=== PATIENT | female | born 1970 | race Caucasian/White ===

== ENCOUNTER 2018-03-19 16:17 | Emergency (ER) | payer OTHER ==
[2018-03-19 17:09] VITALS: BP 118/71; PULSE 77; RESP 16; TEMP 98.6
--- NOTE | 2018-03-19 18:11 | XR ---
EXAMINATION TYPE: XR elbow complete RT DATE OF EXAM: 03/19/2018 COMPARISON: NONE HISTORY: 47-year-old female with pain and redness posterior elbow TECHNIQUE: 3 views FINDINGS: There is soft tissue swelling overlying the olecranon process. No elbow joint effusion. No acute frac ture, subluxation, or dislocation. IMPRESSION: Soft tissue swelling overlying the olecranon process could represent cellulitis, soft tissue contusio n, or olecranon bursitis. No acute osseous abnormality seen.
--- NOTE | 2018-03-19 18:51 | ED ---
General Adult HPI - General Chief complaint: Extremity Problem,Nontraumatic Stated complaint: rt elbow swelling Time Seen by Provider: 03/19/18 18:34 Source: patient, RN notes reviewed Mode of arrival: ambulatory Limitations: no limitations - History of Present Illness Initial comments: 47-year-old female presents to the emergency department for a chief complaint of right elbow swelling. Patient states this has been going on for the past couple days. Patient denies any injury to the elbow. Patient denies any pain with movement of the elbow. Patient denies any fevers or chills at home. Patient states it is warm to touch. Patient has no other complaints at this time including shortness of breath, chest pain, abdominal pain, nausea or vomiting, headache, or visual changes. - Related Data Previous Rx's Medication Instructions Recorded Acetaminophen-Codeine 300-30mg 1 tab PO Q6H PRN #20 tablet 01/09/15 [Tylenol #3] Cyclobenzaprine [Flexeril] 10 mg PO TID PRN #15 tab 01/09/15 methylPREDNISolone [Medrol] 1 pack PO DIRECTED #1 tab.ds.pk 01/09/15 Cephalexin [Keflex] 500 mg PO Q6HR 10 Days cap 03/19/18 Allergies Allergy/AdvReac Type Severity Reaction Status Date / Time cranberry Allergy Rash/Hives Verified 03/19/18 17:09 Review of Systems ROS Statement: Those systems with pertinent positive or pertinent negative responses have been documented in the HPI. ROS Other: All systems not noted in ROS Statement are negative. Past Medical History Past Medical History: COPD, Fibromyalgia, Sleep Apnea/CPAP/BIPAP History of Any Multi-Drug Resistant Organisms: MRSA Date of last positivie culture/infection: 2014 MDRO Source:: Right leg Additional Past Surgical History / Comment(s): Additional Surgical Hx: Oophorectomy - left. Addtional Medical Hx: Diverticulosis Past Psychological History: No Psychological Hx Reported Smoking Status: Current every day smoker Past Alcohol Use History: None Reported Past Drug Use History: Marijuana General Exam Limitations: no limitations General appearance: alert, in no apparent distress Head exam: Present: atraumatic, normocephalic, normal inspection Eye exam: Present: normal appearance ENT exam: Present: normal exam, normal oropharynx, mucous membranes moist, TM's normal bilaterally Neck exam: Present: normal inspection, full ROM. Absent: tenderness, meningismus, lymphadenopathy Respiratory exam: Present: normal lung sounds bilaterally. Absent: respiratory distress, wheezes, rales, rhonchi, stridor Cardiovascular Exam: Present: regular rate, normal rhythm, normal heart sounds. Absent: systolic murmur, diastolic murmur, rubs, gallop, clicks Extremities exam: Present: full ROM (Full range of motion of the right elbow in the rest of the right upper extremity), tenderness (. Mild tenderness to the redness of the right elbow. No tenderness to the medial or lateral epicondyles. ), normal capillary refill (Refill less than 2 seconds and radial pulse 2+ in the right upper extremity.), joint swelling (There is minimal erythema and swelling of the right elbow.), other (There is a 3 cm x 3 cm area of erythema on the olecranon of the right elbow. Appears cellulitic in nature. No abscess noted. No openings in the skin. It is not indurated at this time.) Course Vital Signs 03/19/18 17:07 Temperature 98.6 F Pulse Rate 77 Respiratory 16 Rate Blood Pressure 118/71 O2 Sat by Pulse 96 Oximetry Medical Decision Making - Medical Decision Making 47-year-old female presents to the emergency department for a chief complaint of redness to the right elbow times the past few days. No fevers or chills. No injuries. Patient has full range of motion of the right elbow on exam. There is a 3 cm x 3 cm area of redness to the olecranon of the right elbow. It feels warm to touch. It is cellulitic in nature. No drainable abscess noted. No tenderness to the medial or lateral epicondyles. There is some tenderness to the redness but it is minimal. Neurovascular intact. No signs of joint infection. No pain with movement of the elbow joint. Patient will be treated for cellulitis with Keflex. Patient was marked with black ink to monitor for spreading redness. She will return if she has worsening symptoms. She will follow up with primary care in 1-2 days. Disposition Clinical Impression: Cellulitis Disposition: HOME SELF-CARE Condition: Good Instructions: Cellulitis (ED) Additional Instructions: Please take Keflex as directed. Take Motrin or Tylenol for pain. Trace redness with a black marker and monitor for spreading redness. If symptoms worsen return to the emergency department. Otherwise follow-up with primary care in 1-2 days. Prescriptions: Cephalexin [Keflex] 500 mg PO Q6HR 10 Days cap Is patient prescribed a controlled substance at d/c from ED?: No Referrals: Calvin Franco MD [Primary Care Provider] - 1-2 days Time of Disposition: 18:51
== END 2018-03-19 19:09 | disposition home or self-care (01) ==
LOC: EC 16:17
DX: L03.113 Cellulitis of right upper limb (principal); G47.30 Sleep apnea, unspecified; F17.200 Nicotine dependence, unspecified, uncomplicated; Z99.89 Dependence on other enabling machines and devices; Z86.14 Personal history of Methicillin resistant Staphylococcus aureus infection; Z91.018 Allergy to other foods
CPT/HCPCS: 99283

== ENCOUNTER → 2018-12-22 | Outpatient (CLI) | payer OTHER ==
--- NOTE | 2018-12-22 11:08 | CT ---
EXAMINATION TYPE: CT ChestAbdPelvis w con DATE OF EXAM: 12/22/2018 COMPARISON: None HISTORY: 47-year-old female intra-abdominal mass and pelvic swelling TECHNIQUE: Contiguous axial scanning of the chest, abdomen, and pelvis performed with IV Contrast, pa tient injected with 100 mL of Isovue 300. Delayed images through the kidneys were obtained. Coronal/s agittal reconstructions performed. CT DLP: 1723.0 mGycm Automated exposure control for dose reduction was used. FINDINGS: Chest: Heart normal size without pericardial effusion. Aorta normal caliber with conventional vessel branching anatomy. No thoracic lymphadenopathy by CT size criteria. No consolidation or pleural effusion. ABDOMEN: Tiny hiatal hernia. Subcentimeter hypodensity central posterior right liver lobe, axial image 62, too small for accurate CT characterization, possible tiny cyst. Otherwise, no focal liver lesion. No biliary ductal dilatati on. Portal venous system is patent. Gallbladder, right adrenal gland, kidneys, spleen, and pancreas appear within normal limits Subtle 1 cm nodularity left adrenal gland could represent a subtle underlying adrenal adenoma. No dilated small bowel, free fluid, or free air. No mesenteric or retroperitoneal lymphadenopathy. Normal appendix. No significant stool burden. Mild diverticular change along the left side of the col on. Oral contrast extends distally to the rectum. No pericolonic inflammatory change. Bones: Uterus anteverted. 2.7 cm rounded low-density structure within the right ovary. There is a large left adnexal mass with mixed internal soft tissue/fluid, infection density measuring up to 12.3 x 12.1 cm . Some internal calcifications are present along the posterior-inferior margin. No abnormal fluid collection otherwise seen in the pelvis and no pelvic adenopathy. Bones: Reversal of the normal lumbar lordosis in the upper lumbar spine. No osseous destructive process. IMPRESSION: 1. 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 POTENTIAL COMPLICATIONS OF TH IS TYPE OF LESION INCLUDE OVARIAN TORSION AND DERMOID CYST RUPTURE. 2. A SMALLER 2.7 CM CYST VERSUS ADDITIONAL DERMOID OF THE RIGHT OVARY. CONSIDER CONTRAST-ENHANCED FEM VIOLETA PELVIC MRI FOR FURTHER CHARACTERIZATION. 3. A 1 CM NODULE IN THE LEFT ADRENAL GLAND STATISTICALLY REPRESENTS A BENIGN APPEARING LIPOMA. A ONE- YEAR FOLLOW-UP COULD BE CONSIDERED. 4. MILD LEFT HEMICOLONIC DIVERTICULOSIS.
== END | disposition home or self-care (01) ==
LOC: RADCTMAIN 08:32
PROVIDERS: ATTEND Obstetrics & Gynecology
DX: D27.1 Benign neoplasm of left ovary (principal); K57.30 Diverticulosis of large intestine without perforation or abscess without bleeding; E27.8 Other specified disorders of adrenal gland
CPT/HCPCS: 71260; 74177

== ENCOUNTER → 2019-02-01 | Outpatient (CLI) | payer OTHER ==
[2019-02-01 11:25] LABS: Anisocytosis Moderate; HCT 31.4 % (34.0-46.0); HGB 8.7 gm/dL (11.4-16.0); Hypochromasia Marked; MCH 20.1 pg (25.0-35.0); MCHC 27.7 g/dL (31.0-37.0); MCV 72.5 fL (80.0-100.0); Mean Platelet Volume 7.2; Microcytosis Marked; Platelet Count 295 k/uL (150-450); Poikilocytosis Slight; RBC 4.33 m/uL (3.80-5.40); RDW 20.7 % (11.5-15.5); WBC 8.3 k/uL (3.8-10.6)
[2019-02-01 11:27] LABS: INR 0.9 (<1.2); Partial Thromboplastin Time 25.4 sec (22.0-30.0)
[2019-02-01 11:29] LABS: Amorphous Sediment,Urine Rare /hpf; Appearance,Urine Cloudy (Clear); Bacteria,Urine Rare /hpf; Bilirubin,Urine Negative (Negative); Blood,Urine Moderate (Negative); Color,Urine Yellow; Glucose,Urine (UA) Negative (Negative); Ketones,Urine Negative (Negative); Leukocyte Esterase,Urine Small (Negative); Mucus,Urine Many /hpf; Nitrite,Urine Negative (Negative); Protein,Urine Trace (Negative); Specific Gravity,Urine 1.021 (1.001-1.035); Squamous Epithelial Cell,Urine 37 /hpf (0-4); WBC,Urine 9 /hpf (0-5)
[2019-02-01 15:56] LABS: ALT 16 U/L (8-44); AST 27 U/L (13-35); Albumin/Globulin Ratio 1.81 (1.60-3.17); Alkaline Phosphatase 78 U/L (41-126); Blood Urea Nitrogen <5.0 mg/dL (9.0-27.0); Calcium 8.8 mg/dL (8.7-10.3); Carbon Dioxide 28.4 mmol/L (21.6-31.8); Chloride 105 mmol/L (96-109); Globulin 2.1 g/dL (1.6-3.3); Glucose 114 mg/dL (70-110); Potassium 3.3 mmol/L (3.5-5.5); Sodium 140 mmol/L (135-145); Total Bilirubin 0.2 mg/dL (0.3-1.2); Total Protein 5.9 g/dL (6.2-8.2)
[2019-02-02 13:05] LABS: Iron Saturation 3.89 (12.00-45.00)
== END | disposition home or self-care (01) ==
LOC: LABWHC1 10:35
PROVIDERS: ATTEND Internal Medicine
DX: Z01.818 Encounter for other preprocedural examination (principal); Z01.812 Encounter for preprocedural laboratory examination
CPT/HCPCS: 36415; 80053; 81001; 83540; 83550; 85027; 85610; 85730; 93005

== ENCOUNTER 2019-05-21 16:27 | Emergency (ER) | payer OTHER ==
[2019-05-21 16:39] VITALS: RESP 16; TEMP 98.1
[2019-05-21] MEDS ORDERED: diphenhydrAMINE 50 MG/ML 1 ML VIAL IVP STA (17:08)
[2019-05-21] MEDS ORDERED: METOCLOPRAMIDE 5 MG/ML 2 ML VIAL IVP STA (17:08)
[2019-05-21] MEDS ORDERED: SODIUM CHLORIDE 0.9% 1,000 ML IV STA (17:08)
[2019-05-21] MEDS ORDERED: DEXAMETHASONE SOD PHOSPHATE 10 MG/ML 1 ML VIAL IV STA (17:10)
[2019-05-21] MEDS ORDERED: MAGNESIUM SULFATE-D5W PMX 1 GM in DEXTROSE/WATER 1 100ML.BAG IVPB ONE (17:10)
--- NOTE | 2019-05-21 17:14 | ED ---
Headache HPI - General Chief Complaint: Headache Stated Complaint: Headache Time Seen by Provider: 05/21/19 16:40 Mode of arrival: ambulatory Limitations: no limitations - History of Present Illness Initial Comments: The patient is a 40-year-old female who presents the emergency department with reported headache for the past 2 weeks. Patient states this is a global headache sensation with pressure in her frontal sinuses. She denies any symptoms of respiratory infection. Denies any nasal drainage, sore throat or cough. She does report to ear pressure. Denies any fevers or chills. No neck pain or stiffness. She does report to a slight left-sided lip droop which she b elieves is secondary to an area of infection adjacent to her left superior lip. 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 States the lesion has been present for approximately 2 weeks. He has been growing in size. It is currently scabbed over. She has been getting some clear drainage from it. She does have a history of MRSA. She denies any issues with confusion or slurred speech. No weakness in her extremities. No difficulties with ambulation. Denies any photophobia. No chest pain or shortness of breath. No head trauma. There are no other alleviating, precipitating or modifying factors - Related Data Home Medications Medication Instructions Recorded Confirmed Ibuprofen [Motrin Ib] 400 mg PO ONCE PRN 05/21/19 05/21/19 Loratadine [Claritin] 10 mg PO DAILY PRN 05/21/19 05/21/19 Previous Rx's Medication Instructions Recorded Sulfamethox-Tmp 800-160Mg [Bactrim 2 tab PO Q12HR 7 Days #28 tab 05/21/19 Ds] valACYclovir HCL [Valacyclovir] 1,000 mg PO Q12HR #14 tab 05/21/19 Allergies Allergy/AdvReac Type Severity Reaction Status Date / Time cranberry Allergy Rash/Hives Verified 05/21/19 16:50 Review of Systems ROS Statement: Those systems with pertinent positive or pertinent negative responses have been documented in the HPI. ROS Other: All systems not noted in ROS Statement are negative. Past Medical History Past Medical History: COPD, Fibromyalgia, Sleep Apnea/CPAP/BIPAP History of Any Multi-Drug Resistant Organisms: MRSA Date of last positivie culture/infection: 2014 MDRO Source:: Right leg Additional Past Surgical History / Comment(s): Additional Surgical Hx: Oophorectomy - left. Addtional Medical Hx: Diverticulosis Past Psychological History: No Psychological Hx Reported Smoking Status: Current every day smoker Past Alcohol Use History: None Reported Past Drug Use History: Marijuana General Exam Limitations: no limitations General appearance: alert, in no apparent distress Head exam: Present: atraumatic, normocephalic, normal inspection Eye exam: Present: normal appearance, PERRL, EOMI. Absent: scleral icterus, conjunctival injection, periorbital swelling ENT exam: Present: normal oropharynx, mucous membranes moist, TM's normal bilaterally, normal external ear exam, other (there is a large ulcerative lesion near the left upper lip. there is a central area of scabbing measuring 1.0 x 1.0 cm. No drainage. There is a large area of induration surrounding the scab. ) Neck exam: Present: normal inspection. Absent: tenderness, meningismus, lymphadenopathy Respiratory exam: Present: normal lung sounds bilaterally. Absent: respiratory distress, wheezes, rales, rhonchi, stridor Cardiovascular Exam: Present: regular rate, normal rhythm, normal heart sounds. Absent: systolic murmur, diastolic murmur, rubs, gallop, clicks GI/Abdominal exam: Present: soft, normal bowel sounds. Absent: distended, tenderness, guarding, rebound, rigid Extremities exam: Present: normal inspection, full ROM, normal capillary refill. Absent: tenderness, pedal edema, joint swelling, calf tenderness Back exam: Present: normal inspection Neurological exam: Present: alert, oriented X3, CN II-XII intact, reflexes normal, other (finger to nose, heel to hampton is symmetric bilaterally. Equal 5/5 strength in all extremities. No visual field decifits. No slurred speech or confusion. ) Psychiatric exam: Present: normal affect, normal mood Skin exam: Present: warm, dry, intact, normal color. Absent: rash Course Vital Signs 05/21/19 05/21/19 16:38 18:53 Temperature 98.1 F Pulse Rate 69 75 Respiratory 16 16 Rate Blood Pressure 134/74 140/75 O2 Sat by Pulse 97 99 Oximetry Medical Decision Making - Medical Decision Making Upon arrival the patient is placed in room 16. She is hooked up to continuous pulse ox and cardiac monitoring. Peripheral IV is established. The patient is given a migraine cocktail which consisted of Decadron 10 mg IV, Benadryl 25 mg IV, Reglan 10 mg IV, and magnesium 1 g IV. Laboratory studies were conducted. The patient was sent for CT of her brain as well as CT angiography. Upon return of the results I did discuss them with the patient. I discussed the diagnosis, differential and treatment options. The patient reports to to improvement in her pain from 9 out of 10-6 out of 10. I did recommend treatment with Toradol and patient did agree. She was given 15 mg IV. I recommended that the patient be treated for the lesion on her left lip. She does have a history of MRSA I will was concerned for repeat infection. I did recommend treatment with Bactrim for which the patient did agree. I do believe the patient's lesion did stem from herpes and therefore I also recommended valacyclovir. The patient did agree to this. I did prescribe the patient these medications. She is reevaluated prior to discharge and states that her headache is greatly improved. She is to follow-up with her primary care physician within 2-4 days. If she has any new or worsening symptoms she should return to the emergency room. The patient was discharged home in stable condition. - Lab Data Result diagrams: 05/21/19 17:34 05/21/19 17:34 Lab Results 05/21/19 05/21/19 Range/Units 17:34 17:34 WBC 10.3 (3.8-10.6) k/uL RBC 5.14 (3.80-5.40) m/uL Hgb 13.5 (11.4-16.0) gm/dL Hct 43.2 (34.0-46.0) % MCV 84.1 (80.0-100.0) fL MCH 26.3 (25.0-35.0) pg MCHC 31.3 (31.0-37.0) g/dL RDW 19.7 H (11.5-15.5) % Plt Count 226 (150-450) k/uL Neutrophils % 78 % Lymphocytes % 15 % Monocytes % 4 % Eosinophils % 2 % Basophils % 0 % Neutrophils # 8.0 H (1.3-7.7) k/uL Lymphocytes # 1.5 (1.0-4.8) k/uL Monocytes # 0.5 (0-1.0) k/uL Eosinophils # 0.2 (0-0.7) k/uL Basophils # 0.0 (0-0.2) k/uL Anisocytosis Slight Microcytosis Slight Sodium 138 (137-145) mmol/L Potassium 3.6 (3.5-5.1) mmol/L Chloride 101 (98-107) mmol/L Carbon Dioxide 30 (22-30) mmol/L Anion Gap 7 mmol/L BUN 4 L (7-17) mg/dL Creatinine 0.53 (0.52-1.04) mg/dL Est GFR (CKD-EPI)AfAm >90 (>60 ml/min/1.73 sqM) Est GFR (CKD-EPI)NonAf >90 (>60 ml/min/1.73 sqM) Glucose 105 H (74-99) mg/dL Calcium 9.8 (8.4-10.2) mg/dL Total Bilirubin 0.4 (0.2-1.3) mg/dL AST 26 (14-36) U/L ALT 27 (9-52) U/L Alkaline Phosphatase 87 (38-126) U/L Total Protein 7.7 (6.3-8.2) g/dL Albumin 4.4 (3.5-5.0) g/dL TSH 1.460 (0.465-4.680) mIU/L Disposition Clinical Impression: Headache, Facial cellulitis Disposition: HOME SELF-CARE Condition: Stable Instructions (If sedation given, give patient instructions): Acute Headache (ED) Additional Instructions: Please follow-up with your primary care doctor in 2-4 days. Return to the emergency room for any new or worsening symptoms Prescriptions: Sulfamethox-Tmp 800-160Mg [Bactrim Ds] 2 tab PO Q12HR 7 Days #28 tab valACYclovir HCL [Valacyclovir] 1,000 mg PO Q12HR #14 tab Is patient prescribed a controlled substance at d/c from ED?: No Referrals: Calvin Franco MD [Primary Care Provider] - 1-2 days Time of Disposition: 18:50
[2019-05-21 17:44] LABS: Anisocytosis Slight; Basophils % (A) 0 %; Eosinophils # (A) 0.2 k/uL (0-0.7); Eosinophils % (A) 2 %; HCT 43.2 % (34.0-46.0); HGB 13.5 gm/dL (11.4-16.0); Lymphocytes # (A) 1.5 k/uL (1.0-4.8); Lymphocytes % (A) 15 %; MCH 26.3 pg (25.0-35.0); MCHC 31.3 g/dL (31.0-37.0); MCV 84.1 fL (80.0-100.0); Microcytosis Slight; Monocytes # (A) 0.5 k/uL (0-1.0); Monocytes % (A) 4 %; Neutrophils % (A) 78 %; Platelet Count 226 k/uL (150-450); RBC 5.14 m/uL (3.80-5.40); RDW 19.7 % (11.5-15.5); WBC 10.3 k/uL (3.8-10.6)
[2019-05-21 17:58] LABS: ALT 27 U/L (9-52); AST 26 U/L (14-36); African American GFR (CKD) >90 (>60 ml/min/1.73 sqM); Albumin 4.4 g/dL (3.5-5.0); Alkaline Phosphatase 87 U/L (38-126); Anion Gap 7 mmol/L; Blood Urea Nitrogen 4 mg/dL (7-17); Calcium 9.8 mg/dL (8.4-10.2); Carbon Dioxide 30 mmol/L (22-30); Chloride 101 mmol/L (98-107); Glucose 105 mg/dL (74-99); Potassium 3.6 mmol/L (3.5-5.1); Sodium 138 mmol/L (137-145); Total Bilirubin 0.4 mg/dL (0.2-1.3); Total Protein 7.7 g/dL (6.3-8.2)
--- NOTE | 2019-05-21 18:08 | CT ---
EXAMINATION TYPE: CT brain wo con DATE OF EXAM: 05/21/2019 COMPARISON: None HISTORY: Headaches CT DLP: mGycm. Automated Exposure Control for Dose Reduction was Utilized. TECHNIQUE: CT scan of the head is performed without contrast. FINDINGS: Ventricles and sulci appear normal. There is no mass effect nor midline shift. There is no sign of intracranial hemorrhage. The calvarium is intact. IMPRESSION: Negative CT scan of the brain.
--- NOTE | 2019-05-21 18:21 | CT ---
EXAMINATION TYPE: CT angio head neck DATE OF EXAM: 05/21/2019 HISTORY: Headaches. Hand tingling. COMPARISON: CT DLP: mGycm. Automated Exposure Control for Dose Reduction was Utilized. TECHNIQUE: The contrast was Isovue 50 mL. There are 3-D post processed images. Images obtained from t he aortic arch to the vertex of the brain. FINDINGS: There is normal branching pattern of the great vessels on the aortic arch. There is bilateral arteria l flow in the subclavian arteries. There is arterial flow in both vertebral arteries which are fairly symmetric. There is arterial flow in the common internal and external carotid arteries bilaterally. There is wide patency of the carotid artery bifurcations. There is no evidence of carotid artery aneu rysm or dissection. There is no evidence of vertebral dissection. There is no evidence of carotid or vertebral artery stenosis. There is arterial flow in the anterior middle and posterior cerebral arteries. There is normal contra st opacification of the venous sinuses. There is no mass effect. There is no evidence of intracranial arterial stenosis. There is no evidence of aneurysm or neovascularity. There is arterial flow in the vertebrobasilar artery system. IMPRESSION: Normal CT angiogram of the neck. Normal CT angiogram of the brain.
[2019-05-21] MEDS ORDERED: KETOROLAC 30 MG/ML 1 ML VIAL IVP STA (18:45)
[2019-05-21 18:54] VITALS: BP 140/75; PULSE 75
== END 2019-05-21 19:00 | disposition home or self-care (01) ==
LOC: EC 16:27
DX: K13.0 Diseases of lips (principal); R51 Headache; G47.30 Sleep apnea, unspecified; F17.200 Nicotine dependence, unspecified, uncomplicated; Z91.018 Allergy to other foods; Z86.14 Personal history of Methicillin resistant Staphylococcus aureus infection; Z99.89 Dependence on other enabling machines and devices
CPT/HCPCS: 99284; 96365; 96375 ×4; 36415; 80053; 84443; 85025; 70496; 70450; 70498; J1200; J1100; J2765; J1885; J3475; Q9967

== ENCOUNTER 2024-12-12 09:46 | Emergency (ER) | payer OTHER ==
--- NOTE | 2024-12-12 10:53 | XR ---
EXAMINATION TYPE: XR ankle complete RT DATE OF EXAM: 12/12/2024 10:29 AM COMPARISON: None. CLINICAL INDICATION: Female, 53 years old with history of pain, TECHNIQUE: XR ankle complete RT, views submitted for evaluation. FINDINGS: Vertically oriented fracture involving the medial malleolus at the level of the ankle mortise with di splacement of approximately 2 mm. There is widening of the medial tibial talar joint space at 3.5 mm. There is also widening of the tibiofibular joint at 4 mm. Nondisplaced fracture involving the latera l malleolus. Extensive of soft tissue swelling appreciated. IMPRESSION: 1. Fractures as noted [facility], , 12/12/2024 10:50 AM
--- NOTE | 2024-12-12 11:19 | ED ---
Lower Extremity Injury HPI - General Chief Complaint: Extremity Injury, Lower Stated Complaint: Fall-R ankle injury Time Seen by Provider: 12/12/24 09:54 Source: patient, RN notes reviewed Mode of arrival: ambulatory Limitations: no limitations - History of Present Illness Initial Comments: 53-year-old female presents emergency department chief complaint of right ankle injury. Patient states that she stepped in a pothole last night felt a crack in her ankle. Patient states she is unable to bear weight patient states that swollen, severely painful. No prior injuries. - Related Data Home Medications Medication Instructions Recorded Confirmed Ibuprofen [Motrin Ib] 400 mg PO ONCE PRN 05/21/19 05/21/19 Loratadine [Claritin] 10 mg PO DAILY PRN 05/21/19 05/21/19 Previous Rx's Medication Instructions Recorded Sulfamethox-Tmp 800-160Mg [Bactrim 2 tab PO Q12HR 7 Days #28 tab 05/21/19 Ds] valACYclovir HCL [Valacyclovir] 1,000 mg PO Q12HR #14 tab 05/21/19 Allergies Allergy/AdvReac Type Severity Reaction Status Date / Time cranberry Allergy Rash/Hives Verified 12/12/24 09:52 Review of Systems ROS Statement: Those systems with pertinent positive or pertinent negative responses have been documented in the HPI. ROS Other: All systems not noted in ROS Statement are negative. Past Medical History Past Medical History: COPD, Fibromyalgia, Sleep Apnea/CPAP/BIPAP History of Any Multi-Drug Resistant Organisms: MRSA Date of last positivie culture/infection: 2014 MDRO Source:: Right leg Additional Past Surgical History / Comment(s): Additional Surgical Hx: Oophorectomy - left. Addtional Medical Hx: Diverticulosis Past Psychological History: No Psychological Hx Reported Past Alcohol Use History: None Reported Past Drug Use History: Marijuana General Exam Limitations: no limitations General appearance: alert, in no apparent distress Head exam: Present: atraumatic, normocephalic, normal inspection Respiratory exam: Present: normal lung sounds bilaterally. Absent: respiratory distress, wheezes, rales, rhonchi, stridor Cardiovascular Exam: Present: regular rate, normal rhythm, normal heart sounds. Absent: systolic murmur, diastolic murmur, rubs, gallop, clicks Extremities exam: Present: other (Right ankle moderate swelling, neurovascular intact, diffuse tenderness no proximal tib-fib tenderness) Neurological exam: Absent: motor sensory deficit Course Vital Signs 12/12/24 12/12/24 09:48 11:46 Temperature 98.5 F 98.2 F Pulse Rate 87 84 Respiratory 20 18 Rate Blood Pressure 136/83 131/86 O2 Sat by Pulse 93 L 97 Oximetry Procedures - Orthopedic Splinting/Casting Injury #1 Side: right Lower Extremity Injury Location: short leg, ankle Lower Extremity Immobilizer: synthetic pre-padded splint Other Orthopedic Equipment: crutches Medical Decision Making - Medical Decision Making Was pt. sent in by a medical professional or institution (, [facility], [facility], urgent care, hospital, or usp...) When possible be specific @ -No Did you speak to anyone other than the patient for history (EMS, parent, family, police, friend...)? What history was obtained from this source @ -No Did you review nursing and triage notes (agree or disagree)? Why? @ -I reviewed and agree with nursing and triage notes Were old charts reviewed (outside hosp., previous admission, EMS record, old EKG, old radiological studies, urgent care reports/EKG's, usp records)? Report findings @ -No old charts were reviewed Differential Diagnosis (chest pain, altered mental status, abdominal pain women, abdominal pain men, vaginal bleeding, weakness, fever, dyspnea, syncope, headache, dizziness, GI bleed, back pain, seizure, CVA, palpatations, mental health, musculoskeletal)? @ -Ankle sprain ankle fracture EKG interpreted by me (3pts min.). @ -None X-rays interpreted by me (1pt min.). @ -The right ankle showing bilateral malleoli are fracture CT interpreted by me (1pt min.). @ -None done U/S interpreted by me (1pt. min.). @ -None done What testing was considered but not performed or refused? (CT, X-rays, U/S, labs)? Why? @ -None What meds were considered but not given or refused? Why? @ -None Did you discuss the management of the patient with other professionals (professionals i.e. [facility] Kelley, [facility], lab, RT, psych nurse, social work specialist, propulsion generator repairer, teacher, court security officer, case loader operator)? Give summary @ -No Was smoking cessation discussed for >3mins.? @ -No Was critical care preformed (if so, how long)? @ -No Were there social determinants of health that impacted care today? How? (Homelessness, low income, unemployed, alcoholism, drug addiction, transportation, low edu. Level, literacy, decrease access to med. care, senior living, rehab)? @ -No Was there de-escalation of care discussed even if they declined (Discuss DNR or withdrawal of care, Hospice)? DNR status @ -No What co-morbidities impacted this encounter? (DM, HTN, Smoking, COPD, CAD, Cancer, CVA, ARF, Chemo, Hep., AIDS, mental health diagnosis, sleep apnea, morbid obesity)? @ -None Was patient admitted / discharged? Hospital course, mention meds given and route, prescriptions, significant lab abnormalities, going to OR and other pertinent info. @ -[Discharged patient has right bimalleolar ankle fracture patient was splinted, given crutches will follow-up with orthopedics Undiagnosed new problem with uncertain prognosis? @ -No Drug Therapy requiring intensive monitoring for toxicity (Heparin, Nitro, Insulin, Cardizem)? @ -No Were any procedures done? @ -No Diagnosis/symptom? @ -Right ankle fracture Acute, or Chronic, or Acute on Chronic? @ -Acute Uncomplicated (without systemic symptoms) or Complicated (systemic symptoms)? @ -Unk located Side effects of treatment? @ -No Exacerbation, Progression, or Severe Exacerbation? @ -No Poses a threat to life or bodily function? How? (Chest pain, [place], [place], pneumonia, PE, COPD, DKA, ARF, appy, cholecystitis, CVA, Diverticulitis, Homicidal, Suicidal, threat to staff... and all critical care pts) @ -No Disposition Clinical Impression: Closed bimalleolar fracture of right ankle Disposition: HOME SELF-CARE Condition: Stable Instructions (If sedation given, give patient instructions): Ankle Fracture (ED) Additional Instructions: Please return to the Emergency Department if symptoms worsen or any other concerns. Is patient prescribed a controlled substance at d/c from ED?: No Referrals: None,Stated [Primary Care Provider] - 1-2 days Wander Solis MD [STAFF PHYSICIAN] - 1-2 days Time of Disposition: 11:19
[2024-12-12] MEDS: ACET/COD 300 MG/30 MG STARTER PACK 6 TAB BTL PO STA (11:38)
[2024-12-12 11:47] VITALS: BP 131/86; PULSE 84; RESP 18; TEMP 98.2
== END 2024-12-12 11:47 | disposition home or self-care (01) ==
LOC: EC 09:46
DX: S82.841A Displaced bimalleolar fracture of right lower leg, initial encounter for closed fracture (principal); Z91.018 Allergy to other foods; W18.30XA Fall on same level, unspecified, initial encounter
CPT/HCPCS: 29515; 99283